=== PATIENT | male | born 1945 | race Caucasian/White ===

== ENCOUNTER 2018-04-20 16:32 | Emergency (ER) | payer MEDICARE ==
--- NOTE | 2018-04-20 18:41 | ED ---
Lower Extremity Injury HPI <SagarVincent - Last Filed: 04/20/18 20:13> - General Source: patient, family Mode of arrival: ambulatory Limitations: no limitations <Patricia Swain - Last Filed: 04/20/18 21:26> - General Chief Complaint: Extremity Injury, Lower Stated Complaint: Thigh pain, needs xrays-dr sent Time Seen by Provider: 04/20/18 17:56 - History of Present Illness Initial Comments: 72-year-old male presenting today for chief complaint of burning sensation between the thighs bilaterally. Patient states that for the past year he has had a prickly, burning sensation in the thighs both anteriorly and posteriorly that occurs occasionally, denies distinct pattern with ambulation and states some days are worse than other. Pt admit to chronic low back pain that varies. Pt states he occasionally has cramping in the calf b/l denies swelling, masses. Pt states that he recent was evaluated and had lung masses, he states remaining workup was negative with normal laboratory studies (i reviewed labs WNL). Pt states that he was concerned something was causing the paresthesias of the thighs and told it could be his back and presented today for evaluation. Patient requesting CAT scan. Patient denies any numbness or loss of sensation of the lower extremities, he denies any loss of bowel bladder control, denies any inability to ambulate. He denies any weakness of the lower extremities. Patient denies any trauma to the back. Patient denies a history of IV drug use , fever or chills. Upon arrival patient is well-appearing, ambulatory without difficulty. He denies any current symptoms stating that the burning sensation is not currently occurring. Patient denies any recent shortness of breath, chest pain, abdominal pain, nausea or vomiting, numbness, dysuria or hematuria, constipation or diarrhea, headaches or visual changes, or any other complaints. (Patricia Swain) - Related Data Home Medications Medication Instructions Recorded Confirmed Multivitamins, Thera [Multivitamin 1 tab PO DAILY 04/20/18 04/20/18 (formulary)] Allergies Allergy/AdvReac Type Severity Reaction Status Date / Time No Known Allergies Allergy Verified 04/20/18 19:19 Review of Systems ROS Other: All systems not noted in ROS Statement are negative. <Vincent Keith - Last Filed: 04/20/18 20:13> ROS Other: All systems not noted in ROS Statement are negative. <Patricia Swain - Last Filed: 04/20/18 21:26> ROS Statement: Those systems with pertinent positive or pertinent negative responses have been documented in the HPI. Past Medical History Additional Past Medical History / Comment(s): lung masses awaiting biopsy History of Any Multi-Drug Resistant Organisms: None Reported Past Surgical History: No Surgical Hx Reported Past Psychological History: No Psychological Hx Reported Smoking Status: Current every day smoker Past Alcohol Use History: None Reported Past Drug Use History: None Reported <Patricia Swain - Last Filed: 04/20/18 21:26> General Exam <Vincent Keith - Last Filed: 04/20/18 20:13> Limitations: no limitations <Patricia Swain - Last Filed: 04/20/18 21:26> - General Exam Comments Initial Comments: General: The patient is awake and alert, in no distress, and does not appear acutely ill. Eye: +3 mm pupils are equal, round and reactive to light, extra-ocular movements are intact. No nystagmus. There is normal conjunctiva bilaterally. No signs of icterus. Ears, nose, mouth and throat: There are moist mucous membranes and no oral lesions. Neck: The neck is supple, there is no tenderness or JVD. Cardiovascular: There is a regular rate and rhythm. No murmur, rub or gallop is appreciated. Respiratory: Lungs are clear to auscultation, respirations are non-labored, breath sounds are equal. No wheezes, stridor, rales, or rhonchi. Gastrointestinal: Soft, non-distended, non-tender abdomen without masses or organomegaly noted. There is no rebound or guarding present. Bowel sounds are unremarkable. Musculoskeletal: Normal inspection of the back, LE b/l. Normal ROM, no tenderness of the LE with full ROM equal b/l. Strength 5/5 of the lower extremities at the hip and knee and ankle no evidence of foot drop. Sensation intact of the lower extremities equal bilaterally from hip to toe, no anesthesia of the saddle region. No midlines tenderness to palpation of the lumbar or thoracic spine. No paravertebral tenderness. DP and radial pulses equal bilaterally 2+. No fasciculations, muscle wasting or myoclonus noted. (+ ) SLR b/l. Neurological: A&O x 3. CN II-XII intact, There are no obvious motor or sensory deficits. Coordination appears grossly intact. Speech is normal. Skin: Skin is warm and dry and no rashes or lesions are noted. (-) Homans, no LE edema, no pain to palpation of the deep venous system of the LE. Psychiatric: Cooperative, appropriate mood & affect, normal judgment. (Patricia Swain) Course <Vincent Keith - Last Filed: 04/20/18 20:13> <Patricia Swain - Last Filed: 04/20/18 21:26> Vital Signs 04/20/18 04/20/18 16:45 20:23 Temperature 98.2 F 97.5 F L Pulse Rate 81 80 Respiratory 18 16 Rate Blood Pressure 168/79 150/87 O2 Sat by Pulse 97 95 Oximetry - Reevaluation(s) Reevaluation #1: 04/20/18 20:13 PA supervision: I proceeded [id number] evaluation the patient did discuss [employer] him and his family. Have evidence of chronic lumbar disease no acute findings. No evidence of cauda equina. He'll be discharged to follow-up as directed. I do agree with the assessment and plan (Vincent Keith) Medical Decision Making <Vincent Keith - Last Filed: 04/20/18 20:13> <Patricia Swain - Last Filed: 04/20/18 21:26> - Medical Decision Making Patient's history concerning for radiculopathy. Labs obtained 04/08/18 reviewed- pt provided, no acute findings, within acceptable limits. Physical exam findings reveal no neurovascular deficits, no findings concerning for cauda equina. Given history of possible lung masses of cancerous origin CT of the lumbar spine was obtained to rule out mass of the spine. No concerning findings for mass, there was evidence of spinal stenosis at multiple levels. These findings are consistent with a dermatomal pattern that correlates with patients symptoms. At this time I do feel pt is stable for discharge with orthopedic surgery outpatient f/u. Return parameters were discussed at length with patient who verbalized understanding. At this time we feel patient is stable for discharge with primary care follow-up and was picked surgery evaluation as discussed. Patient is agreeable with plan and discharged. Denied questions at this time. Patient discharged. Well, ambulating without difficulty, remaining asymptomatic. Discusses case with attending provider Dr. Keith who evaluated patient in person agreeing with impression and plan. (Patricia Swain) Disposition <Vincent Keith - Last Filed: 04/20/18 20:13> Is patient prescribed a controlled substance at d/c from ED?: No Time of Disposition: 20:09 <Patricia Swain - Last Filed: 04/20/18 21:26> Clinical Impression: Lumbar stenosis, Radiculopathy Disposition: HOME SELF-CARE Condition: Good Instructions (If sedation given, give patient instructions): Lumbar Spinal Stenosis (ED), Lumbar Radiculopathy (ED) Additional Instructions: Please use medication as discussed. Please follow-up with family doctor in the next 2 days. Plese follow up with orthopedic surgery in the next 2-3 days. Please return to emergency room if the symptoms increase or worsen or for any other concerns. Referrals: Vincent López MD [Primary Care Provider] - 1-2 days Yolanda Landaverde DO [Doctor of Osteopathic Medicine] - 1-2 days
--- NOTE | 2018-04-20 19:39 | CT ---
EXAMINATION TYPE: CT lumbar spine wo con DATE OF EXAM: 04/20/2018 7:12 PM COMPARISON: None HISTORY: bilateral leg pain, numbness, burning, tingling. no injury. CT DLP: 689.3 mGycm Automated exposure control for dose reduction was used. FINDINGS: There is no fracture or malalignment. No pars interarticularis defects. No focal skeletal lesions or acute paraspinal soft tissue pathology. There is no focal disc extrusion/protrusion. However, multilevel lumbar spondylosis changes produce moderate L2-3 spinal stenosis, severe L3-4 spi nal stenosis, and moderate L4-5 spinal stenosis. IMPRESSION: MULTILEVEL SPINAL STENOSIS PATTERN, SEVERE AT L4-5. Incidental finding: Bilateral renal lesions measuring approximately 1 to 4 cm mean, likely cysts, wit h follow-up renal ultrasound is recommended as an outpatient.
[2018-04-20 20:24] VITALS: BP 150/87; PULSE 80; RESP 16; TEMP 97.5
== END 2018-04-20 20:30 | disposition home or self-care (01) ==
LOC: EC 16:32
DX: M48.061 Spinal stenosis, lumbar region without neurogenic claudication (principal); M54.16 Radiculopathy, lumbar region; F17.200 Nicotine dependence, unspecified, uncomplicated
CPT/HCPCS: 72131; 99284

== ENCOUNTER 2023-11-24 11:37 | Emergency (ER) | payer MEDICARE ==
[2023-11-24 11:41] VITALS: RESP 18
[2023-11-24] MEDS: HYDROcodone/APAP 5-325MG 1 EACH TAB PO STA (12:20)
--- NOTE | 2023-11-24 12:54 | XR ---
EXAMINATION TYPE: XR lumbar spine 2 or 3V DATE OF EXAM: 11/24/2023 COMPARISON: None HISTORY: Low back pain TECHNIQUE: 3 view lumbar spine FINDINGS: There is narrowing of disc height at L3-4 and L5-S1. Vertebral body alignment appears scoliotic in the frontal projection. Some subluxation of L3 lateral on L4 may be present. Convexity is to the right. There are 5 lumbar-type vertebral bodies. Pedicles are intact. Vertebral body heights appear preserve d. IMPRESSION: 1. Scoliosis. 2. Degenerative disc changes greatest at L3-4 and L5-S1 [facility], , 11/24/2023 12:51 PM
--- NOTE | 2023-11-24 13:45 | ED ---
Back Pain HPI - General Chief Complaint: Back Pain/Injury Stated Complaint: back/leg pain Time Seen by Provider: 11/24/23 11:44 Source: patient, RN notes reviewed Limitations: no limitations - History of Present Illness Initial Comments: 78-year-old male presents emergency department with chief complaint of low back pain. Patient states that started 5 to 6 days ago. Patient states it radiates down his right leg to his knee. He denies any bowel complicated retention no saddle anesthesias denies any abdominal complaints he had a history of low back surgery in lung cancer. - Related Data Home Medications Medication Instructions Recorded Confirmed Multivitamins, Thera [Multivitamin 1 tab PO DAILY 04/20/18 04/20/18 (formulary)] Previous Rx's Medication Instructions Recorded predniSONE 50 mg PO DAILY #5 tab 11/24/23 Allergies Allergy/AdvReac Type Severity Reaction Status Date / Time No Known Allergies Allergy Verified 11/24/23 11:41 Review of Systems ROS Statement: Those systems with pertinent positive or pertinent negative responses have been documented in the HPI. ROS Other: All systems not noted in ROS Statement are negative. Past Medical History Additional Past Medical History / Comment(s): lung masses awaiting biopsy History of Any Multi-Drug Resistant Organisms: None Reported Past Surgical History: No Surgical Hx Reported Past Psychological History: No Psychological Hx Reported Smoking Status: Never smoker Past Alcohol Use History: None Reported Past Drug Use History: None Reported General Exam Limitations: no limitations General appearance: alert, in no apparent distress Head exam: Present: atraumatic, normocephalic, normal inspection Respiratory exam: Present: normal lung sounds bilaterally. Absent: respiratory distress, wheezes, rales, rhonchi, stridor Cardiovascular Exam: Present: regular rate, normal rhythm, normal heart sounds. Absent: systolic murmur, diastolic murmur, rubs, gallop, clicks GI/Abdominal exam: Present: soft, normal bowel sounds. Absent: distended, tenderness, guarding, rebound, rigid Extremities exam: Present: other (Lower extremity strength equal bilaterally neurovascular intact equal color and equal warmth) Back exam: Present: full ROM, tenderness, paraspinal tenderness, vertebral tenderness Neurological exam: Present: alert, oriented X3, CN II-XII intact, reflexes normal. Absent: motor sensory deficit Course Vital Signs 11/24/23 11:37 Temperature 98 F Pulse Rate 72 Respiratory 18 Rate Blood Pressure 159/70 O2 Sat by Pulse 99 Oximetry Medical Decision Making - Medical Decision Making Was pt. sent in by a medical professional or institution (, ANNIE, WEB ANALYTICS SPECIALIST, urgent care, hospital, or retirement...) When possible be specific @ -No Did you speak to anyone other than the patient for history (EMS, parent, family, police, friend...)? What history was obtained from this source @ -No Did you review nursing and triage notes (agree or disagree)? Why? @ -I reviewed and agree with nursing and triage notes Were old charts reviewed (outside hosp., previous admission, EMS record, old EKG, old radiological studies, urgent care reports/EKG's, retirement records)? Report findings @ -No old charts were reviewed Differential Diagnosis (chest pain, altered mental status, abdominal pain women, abdominal pain men, vaginal bleeding, weakness, fever, dyspnea, syncope, headache, dizziness, GI bleed, back pain, seizure, CVA, palpatations, mental health, musculoskeletal)? @ -Differential Back Pain: Strain, zoster, cauda equina syndrome, epidural abscess, vertebral osteomyelitis, discitis, fracture, subluxation, disc herniation, DJD, spinal stenosis, dissection, AAA, pancreatitis, peptic ulcer disease, pyelonephritis, kidney stone, this is not meant to be an all-inclusive list. EKG interpreted by me (3pts min.). @ -None X-rays interpreted by me (1pt min.). @ -[Lumbar spine showing degenerative changes no acute osseous abnormality CT interpreted by me (1pt min.). @ -None done U/S interpreted by me (1pt. min.). @ -None done What testing was considered but not performed or refused? (CT, X-rays, U/S, labs)? Why? @ -None What meds were considered but not given or refused? Why? @ -None Did you discuss the management of the patient with other professionals (professionals i.e. ANNIE Lay, WEB ANALYTICS SPECIALIST, lab, RT, psych nurse, social services counselor, laborer shaft sinking, teacher, jailer/training officer, field nurse case manager)? Give summary @ -No Was smoking cessation discussed for >3mins.? @ -No Was critical care preformed (if so, how long)? @ -No Were there social determinants of health that impacted care today? How? (Homelessness, low income, unemployed, alcoholism, drug addiction, transportation, low edu. Level, literacy, decrease access to med. care, fpc, rehab)? @ -No Was there de-escalation of care discussed even if they declined (Discuss DNR or withdrawal of care, Hospice)? DNR status @ -No What co-morbidities impacted this encounter? (DM, HTN, Smoking, COPD, CAD, Cancer, CVA, ARF, Chemo, Hep., AIDS, mental health diagnosis, sleep apnea, morbid obesity)? @ -None Was patient admitted / discharged? Hospital course, mention meds given and route, prescriptions, significant lab abnormalities, going to OR and other pertinent info. @ -Discharge patient feels improved after [place]. Patient's presented for back pain with no red flag symptoms discharged with steroids, analgesics Undiagnosed new problem with uncertain prognosis? @ -No Drug Therapy requiring intensive monitoring for toxicity (Heparin, Nitro, Insulin, Cardizem)? @ -No Were any procedures done? @ -No Diagnosis/symptom? @ -Lumbar back pain, lumbar radiculopathy Acute, or Chronic, or Acute on Chronic? @ -Acute Uncomplicated (without systemic symptoms) or Complicated (systemic symptoms)? @ -Uncomplicated Side effects of treatment? @ -No Exacerbation, Progression, or Severe Exacerbation? @ -No Poses a threat to life or bodily function? How? (Chest pain, [place], [place], pneumonia, PE, COPD, DKA, ARF, appy, cholecystitis, CVA, Diverticulitis, Homicidal, Suicidal, threat to staff... and all critical care pts) @ -No Disposition Clinical Impression: Lumbar radiculopathy Disposition: HOME SELF-CARE Condition: Stable Instructions (If sedation given, give patient instructions): Acute Low Back Pain (ED) Additional Instructions: Please return to the Emergency Department if symptoms worsen or any other concerns. Prescriptions: predniSONE 50 mg PO DAILY #5 tab Is patient prescribed a controlled substance at d/c from ED?: No Referrals: Yohannes Cisneros MD [Primary Care Provider] - 1-2 days Time of Disposition: 13:45
[2023-11-24] MEDS: ACET/COD 300 MG/30 MG STARTER PACK 6 TAB BTL PO STA (13:52)
[2023-11-24 14:12] VITALS: BP 154/69; PULSE 67; TEMP 97.9
== END 2023-11-24 14:12 | disposition home or self-care (01) ==
LOC: EC 11:37
DX: M54.16 Radiculopathy, lumbar region (principal)
CPT/HCPCS: 72100; 99283

== ENCOUNTER → 2024-01-01 | Outpatient (CLI) | payer MEDICARE ==
--- NOTE | 2024-01-01 16:41 | PE ---
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 TECHNIQUE: Following the intravenous administration of 10.95 mCi of F-18 FDG, whole body images are performed from the skull base to the midthigh. Images are reviewed on the computer in the coronal, axial, and sagittal planes. Reconstructed rotating images are created on independent workstation and reviewed on the computer. A non-contrast CT is performed in conjunction with the PET scan. Glucose level 95 mg/dL CT DLP: 342.17 mGycm, Automated exposure control for dose reduction was used. COMPARISON: CT None, PET/CT None, MRI: None FINDINGS: Mediastinal SUV mean is 2.3. Hepatic parenchyma SUV mean is 2.7. SKULL BASE AND NECK: No suspicious radiotracer activity. CHEST, MEDIASTINUM, AND HILAR REGION: Right lower lobe 2.5 cm FDG avid pulmonary lesion with a maximum SUV of 9.5. No suspicious lymphadenopathy. ABDOMEN AND PELVIS: No suspicious radiotracer activity. MUSCULOSKELETAL STRUCTURES: There are 2 lucent lesions within the right anterior iliac bone with peripheral sclerosis with larges t measuring up to 2.5 cm. Demonstrates a maximum SUV of 3.0. OTHER CT: Bilateral scleral calcifications. Anterior cervical fusion hardware. Anterior left chest wa ll Mediport catheter with tip terminating at the superior cava junction. Centrilobular emphysematous changes. Small right pleural effusion with scattered atelectasis and postsurgical change. Mediastinum shifted to the right due to right lung volume loss. Small coronary calcifications. Minimal atheroscl erotic calcification of the aorta and its branches. Right renal 3.4 cm cyst. Left renal 2.2 cm cyst. Mild colonic stool burden. Degenerative changes of the bilateral SI joints with anterior bridging. Th ere are 2 lucent lesions within the right anterior iliac bone with peripheral sclerosis with largest measuring up to 2.5 cm. Dextrocurvature of the thoracolumbar spine. IMPRESSION: 1. Posttreatment changes of the right lung with small right pleural effusion and surrounding atelect asis. There is an FDG avid 2.5 cm lesion within the right lower lobe concerning for recurrence/residu al cancer. No definitive evidence for active metastasis. 2. There are 2 adjacent lytic lesions within the right anterior iliac bone with radiotracer activity at background. Favored to represent benign lesions or treated disease. [facility], , 01/01/2024 4:38 PM
== END | disposition home or self-care (01) ==
LOC: RADPETMAIN 09:44
PROVIDERS: ATTEND Internal Medicine Hematology & Oncology
CPT/HCPCS: 78815

== ENCOUNTER → 2024-05-06 | Outpatient (CLI) | payer MEDICARE ==
--- NOTE | 2024-05-07 19:41 | PE ---
EXAMINATION TYPE: PET CT fusion skull to thigh DATE OF EXAM: 05/06/2024 CLINICAL INDICATION:Male, 79 years old with history of C34.2 LUNG CANCER; TECHNIQUE: Following the intravenous administration of 12.52 mCi of F-18 FDG, whole body images are performed from the skull base to the Mid thigh. Images are reviewed on the computer in the coronal, axial, and sagittal planes. Reconstructed rotating images are created on independent workstation an d reviewed on the computer. A non-contrast CT is performed in conjunction with the PET scan. Glucos e level 91 mg/dL CT DLP: 384 mGycm, Automated exposure control for dose reduction was used. COMPARISON: CT None, PET/CT 01/01/2020 , MRI: None FINDINGS: Mediastinal SUV mean is 2.1. Hepatic parenchyma SUV mean is 2.5. SKULL BASE AND NECK: CHEST, MEDIASTINUM, AND HILAR REGION: * Right lower lobe possibly 3.0 cm max SUV 10.7 mm mass, previously max SUV 9.5 measuring 2.5 cm crystal surements difficult with some atelectasis adjacent to this mass. * Scattered nodular areas in the pleura with increased activity, anteriorly max SUV 4.8, previously 3.4, medially max and posteriorly max SUV 3.9 previously 4.2. ABDOMEN AND PELVIS: No suspicious radiotracer activity. MUSCULOSKELETAL STRUCTURES: Lytic lesion in the right anterior iliac bone next to poorly 3, previously 3.0 medially and max SUV 1 .7 laterally, previously 1.6. OTHER CT: Surgical changes to the spine. Mild to moderate centrilobular emphysema changes. There is r ightward shift of the mediastinum. Mild coronary artery atherosclerosis and aortic valve calcificatio ns. Post treatment changes also seen in the right lung with small pleural effusion with split pleural sign. Prostate gland is enlarged to 4.6 cm. I discussed the arterial vascular. Right renal cortical probable cyst. IMPRESSION: 1. Right lower lung pulmonary nodule which may be fractionally larger, measurements difficult given adjacent atelectasis. FDG activity is within 25% of prior suggesting no significant change. 2. Nodular FDG uptake suggestive of pleural deposits. These are not significantly changed from prior . Attention follow-up imaging 3. Right pleural effusion with split pleural sign suggesting emphysema wrist postsurgical pleural th ickening. [facility], Workstation: [id number], 05/07/2024 7:38 PM
== END | disposition home or self-care (01) ==
LOC: RADPETMAIN 09:11
PROVIDERS: ATTEND Internal Medicine Hematology & Oncology
DX: C34.2 Malignant neoplasm of middle lobe, bronchus or lung (principal); R91.1 Solitary pulmonary nodule; J90 Pleural effusion, not elsewhere classified
CPT/HCPCS: 78815; A9552